=== PATIENT | male | born 1990 | race Caucasian/White ===

== ENCOUNTER 2017-01-31 09:44 | Emergency (ER) | payer MEDICAID ==
[2017-01-31 09:53] VITALS: TEMP 99.3
[2017-01-31] MEDS ORDERED: NS 1,000 ML IV ONE ×2 (09:53→10:21)
[2017-01-31] MEDS ORDERED: ONDANSETRON 4 MG/2 ML VIAL IVP ONE (09:53)
[2017-01-31] MEDS ORDERED: LORazepam 2 MG/ML INJ IVP ONE ×2 (10:02→10:48)
--- NOTE | 2017-01-31 10:11 | EDPHY ---
H & P Stated Complaint: N/V/D WITH WEAKNESS STARTED TODAY 5AM, DX6 TODAY Time Seen by Provider: 01/31/17 09:50 HPI/ROS: Chief Complaint: Nausea, vomiting, diarrhea HPI: 26-year-old male with a history of anxiety disorder and panic attacks woke up this morning feeling like he is having a panic attack. He then started have some nausea and vomited multiple times. He has also had for 5 episodes of watery diarrhea. Denies any abdominal pain. No fevers or chills. Ate some bruises from [employer]. No no other ill contacts. No alcohol or other drug use. No recent travel. Diarrhea is not bloody. It is not dark black. ROS: 10 point Review of Systems is negative except as noted in the HPI. PMH: Anxiety, GERD Medications: Ranitidine Allergies: No known drug allergies Social History: No smoking, no alcohol, no recreational drug use Family History: non-contributory Physical Exam: Gen: Awake, Alert, anxious appearing HEENT: Nose: no rhinorrhea Eyes: PERRLA, EOMI Mouth: Moist mucosa Neck: Supple, no JVD Chest: nontender, lungs clear to auscultation Heart: S1, S2 normal, no murmur Abd: Soft, non-tender, no guarding Back: no CVA tenderness, no midline tenderness Ext: no edema, non-tender Skin: no rash Neuro: CN II-XII intact, Sensation grossly intact, Strength 5/5 in bilateral upper and lower extremities - Medical/Surgical History Hx Asthma: No Hx Chronic Respiratory Disease: No Hx Diabetes: No Hx Cardiac Disease: No Hx Renal Disease: No Hx Cirrhosis: No Hx Alcoholism: No Hx HIV/AIDS: No Hx Splenectomy or Spleen Trauma: No Other PMH: TONSILECTOMY, REFLUX, PANIC ATTACK - Social History Smoking Status: Former smoker Constitutional: Initial Vital Signs Temperature (C) 37.4 C 01/31/17 09:51 Heart Rate 76 01/31/17 09:51 Respiratory Rate 26 H 01/31/17 09:51 Blood Pressure 127/71 H 01/31/17 09:51 O2 Sat (%) 97 01/31/17 09:51 O2 Delivery Mode Room Air O2 (L/minute) 4 Allergies/Adverse Reactions: No Known Allergies Allergy (Unverified 01/31/17 09:50) Home Medications: Medication Instructions Recorded Ranitidine HCl 01/31/17 Medical Decision Making ED Course/Re-evaluation: Patient is improved after IV fluids and antiemetics. He is tolerating p.o.. Abdomen is soft and benign. Symptoms consistent with acute gastroenteritis. Will discharge with oral antiemetics and instructions return if symptoms worsen. - Data Points Laboratory Results: Laboratory Results 01/31/17 10:00 01/31/17 10:00 01/31/17 01/31/17 10:00 10:00 WBC 20.12 10^3/uL H 10^3/uL (3.80-9.50) RBC 6.30 10^6/uL 10^6/uL (4.40-6.38) Hgb 17.5 g/dL g/dL (13.7-17.5) Hct 51.0 % % (40.0-51.0) MCV 81.0 fL L fL (81.5-99.8) MCH 27.8 pg L pg (27.9-34.1) MCHC 34.3 g/dL g/dL (32.4-36.7) RDW 12.8 % % (11.5-15.2) Plt Count 310 10^3/uL 10^3/uL (150-400) MPV 11.3 fL fL (8.7-11.7) Neut % (Auto) 83.2 % H % (39.3-74.2) Lymph % (Auto) 11.3 % L % (15.0-45.0) [place] % (Auto) 4.3 % L % (4.5-13.0) Eos % (Auto) 0.2 % L % (0.6-7.6) Baso % (Auto) 0.5 % % (0.3-1.7) Nucleat RBC Rel Count 0.0 % % (0.0-0.2) Absolute Neuts (auto) 16.71 10^3/uL H 10^3/uL (1.70-6.50) Absolute Lymphs (auto) 2.27 10^3/uL 10^3/uL (1.00-3.00) Absolute Monos (auto) 0.87 10^3/uL H 10^3/uL (0.30-0.80) Absolute Eos (auto) 0.05 10^3/uL 10^3/uL (0.03-0.40) Absolute Basos (auto) 0.11 10^3/uL H 10^3/uL (0.02-0.10) Absolute Nucleated RBC 0.00 10^3/uL 10^3/uL (0-0.01) Immature Gran % 0.5 % % (0.0-1.1) Immature Gran # 0.11 10^3/uL H 10^3/uL (0.00-0.10) Sodium 144 mEq/L mEq/L (134-144) Potassium 3.8 mEq/L mEq/L (3.5-5.2) Chloride 104 mEq/L mEq/L (97-110) Carbon Dioxide 20 mEq/l L mEq/l (22-31) Anion Gap 20 mEq/L H mEq/L (8-16) BUN 14 mg/dL mg/dL (7-23) Creatinine 0.9 mg/dL mg/dL (0.7-1.3) Estimated GFR > 60 Glucose 119 mg/dL H mg/dL (70-100) Calcium 10.4 mg/dL mg/dL (8.5-10.4) Medications Given: Discontinued Medications Haloperidol Lactate (Haldol Injection) 2.5 mg IVP EDNOW ONE Stop: 01/31/17 12:09 Last Admin: 01/31/17 12:21 Dose: 2.5 mg Sodium Chloride (Ns) 1,000 mls @ 0 mls/hr IV ONCE ONE PRN Reason: Wide Open Stop: 01/31/17 09:54 Last Admin: 01/31/17 09:56 Dose: 1,000 mls Sodium Chloride (Ns) 1,000 mls @ 0 mls/hr IV ONCE ONE PRN Reason: Wide Open Stop: 01/31/17 10:22 Last Admin: 01/31/17 10:54 Dose: 1,000 mls Lorazepam (Ativan Injection) 1 mg IVP EDNOW ONE Stop: 01/31/17 10:03 Last Admin: 01/31/17 10:07 Dose: 1 mg Lorazepam (Ativan Injection) 1 mg IVP EDNOW ONE Stop: 01/31/17 10:49 Last Admin: 01/31/17 11:00 Dose: 1 mg Ondansetron HCl (Zofran) 4 mg IVP EDNOW ONE Stop: 01/31/17 09:54 Last Admin: 01/31/17 09:56 Dose: 4 mg Departure - Departure Disposition: Home, Routine, Self-Care Clinical Impression: Acute gastroenteritis Condition: Good Instructions: Gastroenteritis (ED), Acute Nausea and Vomiting (ED) Additional Instructions: He may take Zofran as needed for nausea vomiting. Is important a drink plenty of fluids. Follow up with primary care physician in 2-3 days for re-evaluation.
[2017-01-31 10:53] LABS: % IMMATURE GRANULYOCYTES 0.5 % (0.0-1.1); ABSOLUTE IMMATURE GRANULOCYTES 0.11 10^3/uL (0.00-0.10); ADD DIFF? NO; ADD MORPH? NO; ADD SCAN? NO; ATYPICAL LYMPHOCYTE FLAG 0 (0-99); FRAGMENT RBC FLAG 0 (0-99); HEMOGLOBIN 17.5 g/dL (13.7-17.5); LEFT SHIFT FLG 0 (0-99); LIPEMIA HEMOLYSIS FLAG 90 (0-99); MEAN CELL HEMOGLOBIN 27.8 pg (27.9-34.1); MEAN CELL HEMOGLOBIN CONCENTR. 34.3 g/dL (32.4-36.7); MEAN PLATELET VOLUME 11.3 fL (8.7-11.7); PLATELET CLUMPS FLAG 20 (0-99); PLATELET COUNT 310 10^3/uL (150-400); RED CELL DISTRIBUTION WIDTH 12.8 % (11.5-15.2)
[2017-01-31 10:59] LABS: ANION GAP 20 mEq/L (8-16); CALCIUM 10.4 mg/dL (8.5-10.4); CARBON DIOXIDE 20 mEq/l (22-31); CHLORIDE 104 mEq/L (97-110); CREATININE 0.9 mg/dL (0.7-1.3); GLOMERULAR FILTRATION RATE > 60; GLUCOSE 119 mg/dL (70-100); POTASSIUM 3.8 mEq/L (3.5-5.2); SODIUM 144 mEq/L (134-144)
[2017-01-31 11:57] VITALS: PULSE 76; RESP 18
[2017-01-31] MEDS ORDERED: HALOPERIDOL LACT 5 MG/ML INJ IVP ONE (12:08)
[2017-01-31 13:53] VITALS: BP 134/68; O2SAT 94
[2017-01-31] MEDS: ONDANSETRON 4MG PREPACK#2 BTL TAKEHOME ONE ×2 (13:53→15:50)
== END 2017-01-31 13:36 | disposition home or self-care (01) ==
LOC: CED 09:44
DX: K52.9 Noninfective gastroenteritis and colitis, unspecified (principal); Z87.891 Personal history of nicotine dependence
CPT/HCPCS: 80048-PO; 85025-PO; 96374; J2060